=== PATIENT | female | born 1945 | race Caucasian/White ===

== ENCOUNTER 2016-03-31 20:57 | Inpatient (IN) | payer OTHER ==
[2016-03-31 21:22] LABS: BE -0.2 mmoll (-3.0-3.0); BLOOD TYPE ARTERIAL; DRAW SITE R BRACHIAL; METHB 1.1 % (0.0-1.5); O2(CT) 18.3 mL/dL (15.0-23.0); PO2(98.6) 61 mmHg (60-100); SAMPLE BLOOD; SAO2 92.4 % (95.0-100.0); THB 14.7 g/dL (11.5-17.4); pH(98.6) 7.32 (7.35-7.45)
--- NOTE | 2016-03-31 21:25 | PROVIDER DOCUMENTATION ---
HPI-Respiratory General - General Chief Complaint: Shortness of Breath Stated Complaint: short of breath Time Seen by Provider: 03/31/16 20:57 Source: patient Allergies/Adverse Reactions: Patient Allergies Allergy/AdvReac Type Severity Reaction Status Date / Time adhesive Allergy Severe Unknown Verified 03/31/16 21:15 methylprednisolone sodium Allergy Severe SHORTNESS Verified 03/31/16 21:15 succ... * OF BREATH [From Solu-Medrol] Home Medications: Home Medication List Medication Instructions Recorded Confirmed Last Taken Type Alprazolam [Xanax] 0.5 mg PO 4XDAY 06/21/15 03/31/16 11/25/15 22:00 History Aripiprazole [Abilify] 5 mg PO QHS 06/21/15 03/31/16 11/25/15 22:00 History Carbidopa/Levodopa 25 - 100 tab PO TID 06/21/15 03/31/16 11/25/15 22:00 History [Carbidopa-Levodopa 25-100 Tab] Duloxetine [Cymbalta] 60 mg PO DAILY 06/21/15 03/31/16 11/25/15 06:30 History Estradiol 2 mg PO DAILY 06/21/15 03/31/16 11/25/15 06:30 History Levothyroxine [Synthroid] 75 mcg PO DAILY 06/21/15 03/31/16 11/25/15 06:30 History Primidone 50 mg PO BID 06/21/15 03/31/16 11/23/15 06:30 History Propranolol HCl [Propranolol HCl 120 mg PO DAILY 06/21/15 03/31/16 11/25/15 06: 30 History ER] ROSUVAstatin [Crestor] 10 mg PO DAILY 06/21/15 03/31/16 11/25/15 22:00 History Zolpidem [Ambien] 10 mg PO QHS 06/21/15 03/31/16 11/25/15 22:00 History Esomeprazole [Nexium] 40 mg PO DAILY 10/31/15 03/31/16 Unknown History Hydrocodone/Acetaminophen [Bartow 1 each PO Q4H PRN PRN 11/25/15 03/31/16 09:00 History 10-325 Tablet] LISINOpril [Prinivil] 20 mg PO DAILY 11/25/15 03/31/16 11/25/15 06:30 History Meloxicam 15 mg PO DAILY 11/25/15 03/31/16 11/23/15 06:00 History Mirtazapine [Remeron] 15 mg PO HS 11/25/15 03/31/16 11/25/15 22:00 History Trazodone [Desyrel] 200 mg PO QHS 11/25/15 03/31/16 11/25/15 22:00 History Furosemide [Lasix] 40 mg PO PRN PRN #30 tablet 02/28/16 03/31/16 03/30/16 Rx - History of Present Illness-Resp Nature of Presenting Problem: 70 year old F presents to the ED with a cc of shortness of breath with an onset of 2-3 hours ago. Pt was seen last week for the same and was placed on Lasix. Pt states that she did not take her Lasix today. On EMS arrival, pts O2 sat was 65%. Pt was placed on c-pap en-route to ED and given 40 mg of Lasix 15 minutes [employer]. Severity in ED: reports: moderate Onset/Duration: reports: 1-3 hours ago Timing: reports: still present Current Respiratory Medication Therapy: Initiated see nurses note Associated Symptoms: reports: shortness of breath Similar Symptoms Previously?: Yes Recently seen or treated by another doctor?: Yes Review of Systems - Adult - REVIEW OF SYSTEMS - ADULT Constitutional: denies: chills, fever Eyes: reports: no symptoms reported Ears, Nose, Mouth & Throat: reports: no symptoms reported Cardiovascular: denies: chest pain, palpitations Respiratory: reports: shortness of breath, wheezing Gastrointestinal: reports: no symptoms reported Genitourinary: reports: no symptoms reported Musculoskeletal: reports: no symptoms reported Integumentary: reports: no symptoms reported Neurological: reports: no symptoms reported Psychiatric: reports: no symptoms reported Endocrine: reports: no symptoms reported Hematologic/Lymphatic: reports: no symptoms reported Allergic/Immunologic: reports: no symptoms reported All Other Systems: Reviewed and Negative Past History - Adult - PAST MEDICAL HISTORY-ADULT Review of Records: reports: Nursing Assessment Review, Medications Reviewed Major Childhood Illnesses: reports: denies history Cardiovascular: reports: HTN Respiratory: reports: COPD Genitourinary: reports: kidney stones Psychiatric: reports: bipolar Endocrine/Immune: reports: thyroid disorder - PRIOR SURGERIES/PROCEDURES Surgical/Procedure History: reports: hysterectomy, other (thyroidectomy) - PRIOR HOSPITALIZATIONS Prior Hospitalizations: reports: none - IMMUNIZATION STATUS Childhood Immunizations: See Nurse Assessment Flu Vaccine: See Nurse Assessment - FAMILY HISTORY Family History: reviewed, not pertinent - SOCIAL HISTORY Smoking: cigarettes Provider spent 3-5 mins advising pt. on dangers of tobacco.: Discussed manners to quit use, and f/u contacts for add'l counseling. Substance Use: none/never Alcohol Use Frequency: never Physical Exam-General - PHYSICAL EXAM-ADULT Initial Vital Signs Reviewed: Yes - CONSTITUTIONAL General Appearance: alert, moderate distress, obese - RESPIRATORY Respiratory: respiratory distress, decreased breath sounds, crackles, wheezing - CARDIOVASCULAR Cardiovascular: normal peripheral pulses, tachycardia - MUSCULOSKELETAL Extremity: normal inspection, no pedal edema - SKIN Integumentary: normal color, normal turgor, warm/dry - PSYCHIATRIC Psych/Mental Status: normal mood/affect, normal thought content, normal thought process, oriented x 3 Progress - PLAN OF CARE/RESULTS Progress/Plan/Lab Results: plan of care: labs, EKG, bipap Pt placed on bi-pap on arrival due to respiratory distress. Orders Category Date Time Status Cardiac Monitoring DIRECTED Care 03/31/16 21:02 Active Oxygen Therapy- ED Nursing DIRECTED Care 03/31/16 21:02 Active Saline Loc NOW Care 03/31/16 21:02 Active CHEST-PORTABLE [RAD] Stat Exams 03/31/16 21:02 Taken ABG [RESP] Routine Lab 03/31/16 21:05 Completed CBC WITH ELECTRONIC DIFF [HEME] Stat Lab 03/31/16 21:25 Completed CK PROFILE [SP CHEM] Stat Lab 03/31/16 21:25 Completed COMPREHENSIVE METABOLIC PANEL [CHEM] Stat Lab 03/31/16 21:25 Completed MAGNESIUM [CHEM] Stat Lab 03/31/16 21:25 Completed PRO B-NATRIURETIC PEPTIDE Stat Lab 03/31/16 21:[address]IME WITH INR [address] [COAG] Stat Lab 03/31/16 21:[address] [COAG] Stat Lab 03/31/16 21:25 Completed TROPONIN T Stat Lab 03/31/16 21:25 Completed EKG [EKG] Stat Ther 03/31/16 21:02 Draft Transfer/Admit Order [TRANSFER] Routine Transfer 03/31/16 22:59 Ordered Laboratory Tests 03/31/16 03/31/16 03/31/16 21:05 21:25 21:25 WBC RBC Hgb Hct MCV MCH MCHC RDW Std Deviation Plt Count MPV Immature Gran % (Auto) Neut % (Auto) Lymph % (Auto) Kimball % (Auto) Eos % (Auto) Baso % (Auto) Immature Gran # (Auto) Neut # (Auto) Lymph # (Auto) Kimball # (Auto) Eos # (Auto) Baso # (Auto) PT INR APTT (Factor Assay) Specimen Type ARTERIAL Sample Site R BRACHIAL pH 7.32 L pCO2 52 H* pO2 61 HCO3 24.5 Base Excess -0.2 Oxyhemoglobin 88.6 L* ABG O2 Sat (Calculated) 18.3 ABG O2 Saturation 92.4 L ABG Carboxyhemoglobin 3.00 H ABG Methemoglobin 1.1 Familia Test NO A-a O2 Difference 231.0 Total Hemoglobin 14.7 Lactate 2.10 Blood Gas Modality BI PAP Spontaneous Rate 12 FiO2 % 50.0 Inspiratory BiPAP 16.0 Expiratory BiPAP 8.0 Sodium 136 Potassium 4.0 Chloride 97 L Carbon Dioxide 24 L Anion Gap 15 BUN 12 Creatinine 0.8 Estimated GFR/1.73 m2 > 60 BUN/Creatinine Ratio 15 Glucose 219 H Calculated Osmolality 278 Calcium 9.3 Magnesium 2.1 Total Bilirubin 0.20 AST 11 ALT 6 L Alkaline Phosphatase 127 H Creatine Kinase 59 Troponin T < 0.010 Alh-G-Skspqadpuss Pept Total Protein 7.1 Albumin 4.1 Globulin 3.0 Albumin/Globulin Ratio 1.0 03/31/16 03/31/16 03/31/16 21:25 21:25 21:25 WBC 19.56 H RBC 5.02 Hgb 14.6 Hct 46.2 MCV 92.0 MCH 29.1 MCHC 31.6 L RDW Std Deviation 14.3 Plt Count 308 MPV 9.0 Immature Gran % (Auto) 0.6 H Neut % (Auto) 86.9 H Lymph % (Auto) 7.9 L Kimball % (Auto) 3.4 Eos % (Auto) 0.9 Baso % (Auto) 0.3 Immature Gran # (Auto) 0.11 H Neut # (Auto) 17.03 H Lymph # (Auto) 1.54 Kimball # (Auto) 0.66 H Eos # (Auto) 0.17 Baso # (Auto) 0.05 PT 12.9 INR 0.94 APTT (Factor Assay) 29.3 Specimen Type Sample Site pH pCO2 pO2 HCO3 Base Excess Oxyhemoglobin ABG O2 Sat (Calculated) ABG O2 Saturation ABG Carboxyhemoglobin ABG Methemoglobin Familia Test A-a O2 Difference Total Hemoglobin Lactate Blood Gas Modality Spontaneous Rate FiO2 % Inspiratory BiPAP Expiratory BiPAP Sodium Potassium Chloride Carbon Dioxide Anion Gap BUN Creatinine Estimated GFR/1.73 m2 BUN/Creatinine Ratio Glucose Calculated Osmolality Calcium Magnesium Total Bilirubin AST ALT Alkaline Phosphatase Creatine Kinase Troponin T Vtl-[id number]-Fuagqzdtgxi Pept 990 H Total Protein Albumin Globulin Albumin/Globulin Ratio Vital Signs - 24 hr 03/31/16 03/31/16 03/31/16 20:59 21:11 21:41 Temperature 98.2 F Pulse Rate 102 H 88 86 Respiratory 24 21 26 H Rate Blood Pressure 230/136 165/107 162/90 O2 Sat by Pulse 82 L 90 L 93 L Oximetry 03/31/16 03/31/16 22:10 22:24 Temperature Pulse Rate 82 79 Respiratory 23 23 Rate Blood Pressure 149/95 158/96 O2 Sat by Pulse 92 L 91 L Oximetry Pt/family given results. Pt will be admitted to Dr. Mc. PT/Family in agreement with plan of care. - EKG 1 Time of EKG reading by physician:: 21:26 EKG Read and Signed by:: Gregorio Woo EKG Interpretation (*Must complete 3 of following elements*): Abnormal Rate: 87 Rhythm: NSR QRS: LVH - CONSULTS/PCP/HOSPITALIST Notification #1 *Consult/PCP/Hospitalist*: Dr. Mc(PCP) Time Discussed: 22:55 Consult Disposition: Admit Departure - Departure Time of Disposition Order: 22:59 DIAGNOSIS: COPD with acute exacerbation Disposition: ADMITTED INPATIENT 09 Certified Medical Emergency: Emergent Condition: Stable Referrals: Gilbert Mc MD [Primary Care Provider] - - Critical Care Note Total Time (mins): 60 Critical Care Statement: This patient required my direct personal management to treat or rule out processes, the absence of which, could potentiallly result in sudden, clinically significant life or limb threatening deterioration. Attestation - Scribe Verification/Attestation Scribe:: Priscilla Chandler Acting as Scribe for:: Gregorio Woo Scribe documention review:: This chart was documented by a scribe and accurately reflects the service the provider performed and the decisions made by the provider. Physician Attestation - Physician Attestation I, the provider, attest to the following statement:: Gregorio Woo Physician documentation Attestation:: This documentation recorded by the scribe accurately reflects the service I personally performed and the decisions made by me.
[2016-03-31 21:28] LABS: MANUAL DIFF NEEDED? NO
--- NOTE | 2016-03-31 21:34 | EKG Report ---
Test Performed on : 03/31/2016 9:26:45 PM Test Reason : CHEST PAIN Blood Pressure : / mmHG Vent. Rate : 087 BPM Atrial Rate : 087 BPM P-R Int : 154 ms QRS Dur : 074 ms QT Int : 384 ms P-R-T Axes : 047 002 073 degrees QTc Int : 462 ms Normal sinus rhythm. Minimal voltage criteria for LVH, may be normal variant Borderline ECG When compared with ECG of 26-FEB-2016 21:07, No significant change was found Unconfirmed Result
[2016-03-31 21:36] LABS: BASO% 0.3 % (0.0-0.8); EOS# 0.17 X1000 (0.0-0.7); EOS% 0.9 % (0.0-10.0); HEMATOCRIT 46.2 % (37.0-47.0); HEMOGLOBIN 14.6 g/dL (12.0-16.0); IMM GRAN# 0.11 X1000 (0.0-0.04); IMM GRAN% 0.6 % (0.0-0.5); LYMPH# 1.54 X1000 (1.2-3.4); LYMPH% 7.9 % (20.5-51.1); MCH 29.1 PG (27-31); MCHC 31.6 g/dL (33-37); MONO# 0.66 X1000 (0.11-0.59); MONO% 3.4 % (1.7-9.3); NEUT% 86.9 % (42.2-75.2); PLT 308 X1000 (130-400); RBC 5.02 XMIL (4.2-5.4)
[2016-03-31 21:36] LABS: PCO2(98.6) 52 mmHg (35-45)
[2016-03-31 21:37] LABS: ALLEN TEST NO; MODALITY BI PAP; SRATE 12 BPM
[2016-03-31 21:50] LABS: INR 0.94 (0.86-1.15); PROTIME 12.9 Seconds (12.1-15.5)
[2016-03-31 21:51] LABS: PTT PL 29.3 Seconds (22.6-43.9)
[2016-03-31 22:01] LABS: AGAP 15; ALBUMIN 4.1 g/dL (3.5-5.0); ALKALINE PHOSPHATASE 127 U/L (32-104); BUN 12 mg/dL (8-22); CALCIUM 9.3 mg/dL (8.8-10.2); CHLORIDE 97 mmol/L (98-107); CK PROFILE 59 U/L (24-173); COSMO 278; GOT 11 U/L (10-30); GPT 6 U/L (10-36); MAGNESIUM 2.1 mg/dL (1.5-2.7); SODIUM 136 mmol/L (136-145); TCO2 24 mmol/L (25-35); TOTAL PROTEIN 7.1 g/dL (6.3-8.3)
[2016-03-31] MEDS ORDERED: ZOFRAN IV PRN (23:00)
[2016-04-01] MEDS: NS 1,000 ML IV SCH ×3 (00:29→11:58)
[2016-04-01] MEDS: NORCO-10 PO PRN ×4 (00:43→21:55)
[2016-04-01 05:56] LABS: BE 5.5 mmoll (-3.0-3.0); BLOOD TYPE ARTERIAL; DRAW SITE R RADIAL; METHB 0.8 % (0.0-1.5); O2(CT) 15.7 mL/dL (15.0-23.0); PO2(98.6) 70 mmHg (60-100); SAMPLE BLOOD; SAO2 96.2 % (95.0-100.0); pH(98.6) 7.38 (7.35-7.45)
[2016-04-01 06:12] LABS: ALLEN TEST YES; MODALITY CANNULA; PCO2(98.6) 54 mmHg (35-45)
[2016-04-01] MEDS ORDERED: BLISTEX MEDICATED BERRY LIP BALM TOP PRN (06:32)
--- NOTE | 2016-04-01 07:51 | Diag Imaging Result Document ---
PROCEDURE NAME: CHEST-PORTABLE - 03/31/2016 CHEST, SINGLE VIEW: COMPARISON: 02/28/2016 FINDINGS: Interval development of dense infiltrates in the mid and lower left lung. The heart is not enlarged. No pleural effusions identified. There may be a small infiltrate in the right base as well. IMPRESSION: Development of dense infiltrates in the left lung. Followup PA and lateral recommended.
[2016-04-01] MEDS: PRINIVIL PO SCH (09:21)
[2016-04-01] MEDS: SINEMET 25/100 PO SCH ×3 (09:21→17:59)
[2016-04-01] MEDS: XANAX PO SCH ×4 (09:21→21:38)
[2016-04-01] MEDS: ESTRACE PO SCH (09:21)
[2016-04-01] MEDS: MYSOLINE PO SCH ×2 (09:22→21:39)
[2016-04-01] MEDS: INDERAL LA PO SCH (09:22)
[2016-04-01] MEDS: CYMBALTA PO SCH (09:22)
[2016-04-01] MEDS: SYNTHROID PO SCH (09:28)
[2016-04-01] MEDS: NEXIUM PO SCH (09:28)
--- NOTE | 2016-04-01 13:51 | Diag Imaging Result Document ---
PROCEDURE NAME: CHEST-2 VIEWS - 04/01/2016 FRONTAL AND LATERAL CHEST, TWO VIEWS: COMPARISON: 03/31/2016. FINDINGS: The lungs are well expanded. The heart is not enlarged. The vessels are not distended. No pleural effusions. Interval clearing of the prior infiltrate. No free air beneath the diaphragm. IMPRESSION: Marked interval improvement with clearing of the prior infiltrate.
[2016-04-01 20:49] LABS: MANUAL DIFF NEEDED? NO
[2016-04-01 20:58] LABS: BASO% 0.4 % (0.0-0.8); EOS# 0.21 X1000 (0.0-0.7); EOS% 1.5 % (0.0-10.0); HEMOGLOBIN 11.7 g/dL (12.0-16.0); IMM GRAN# 0.05 X1000 (0.0-0.04); IMM GRAN% 0.4 % (0.0-0.5); LYMPH# 3.76 X1000 (1.2-3.4); LYMPH% 26.7 % (20.5-51.1); MCH 29.4 PG (27-31); MCHC 31.6 g/dL (33-37); MONO# 1.07 X1000 (0.11-0.59); MONO% 7.6 % (1.7-9.3); NEUT% 63.4 % (42.2-75.2); PLT 313 X1000 (130-400); RBC 3.98 XMIL (4.2-5.4)
[2016-04-01] MEDS ORDERED: INDERAL LA PO SCH (21:00)
[2016-04-01] MEDS ORDERED: REMERON PO SCH (21:00)
[2016-04-01] MEDS ORDERED: ABILIFY PO SCH (21:00)
[2016-04-01] MEDS ORDERED: CRESTOR PO SCH (21:00)
[2016-04-01] MEDS ORDERED: AMBIEN PO SCH (21:00)
[2016-04-01 21:11] LABS: URINE SOURCE CATH
[2016-04-01 21:23] LABS: BILIRUBIN URINE NEGATIVE (NEGATIVE); BLOOD URINE 1+ (NEGATIVE); CLARITY CLEAR (CLEAR); COLOR YELLOW; GLUCOSE URINE NEGATIVE (NEGATIVE); LEUKOCYTES URINE 1+ (NEGATIVE); NITRITE URINE NEGATIVE (NEGATIVE); PH URINE 6.5; PROTEIN URINE TRACE mg/dL (NEGATIVE); SP GRAVITY URINE 1.015; UROBILINOGEN URINE NORMAL
[2016-04-01 21:24] LABS: URINE CULTURE PL NEEDED? YES; URINE EPITHELIAL CELLS <10 /HPF (<10)
[2016-04-02] MEDS: NORCO-10 PO PRN ×2 (04:25→13:09)
[2016-04-02] MEDS: SYNTHROID PO SCH (06:19)
[2016-04-02] MEDS: NEXIUM PO SCH (06:19)
[2016-04-02] MEDS: NS 1,000 ML IV SCH ×2 (06:29→14:16)
[2016-04-02] MEDS: CYMBALTA PO SCH (09:46)
[2016-04-02] MEDS: PRINIVIL PO SCH (09:46)
[2016-04-02] MEDS: INDERAL LA PO SCH (09:46)
[2016-04-02] MEDS: SINEMET 25/100 PO SCH ×3 (09:46→16:32)
[2016-04-02] MEDS: ESTRACE PO SCH (09:47)
[2016-04-02] MEDS: XANAX PO SCH ×3 (09:47→16:32)
[2016-04-02] MEDS: MYSOLINE PO SCH (09:47)
[2016-04-02] MEDS ORDERED: DIFLUCAN PO SCH (14:15)
[2016-04-02 16:20] VITALS: BP 150/53
--- NOTE | 2016-04-02 17:40 | Diag Imaging Result Document ---
PROCEDURE NAME: SHOULDER-LEFT - 04/02/2016 LEFT SHOULDER, 3 VIEWS: FINDINGS: The patient apparently was unable to externally rotate the humerus for optimal external rotation view. There is no fracture or dislocation identified. There is no other discrete abnormality identified. IMPRESSION: No evidence of fracture or dislocation.
[2016-04-03] MEDS ORDERED: LASIX IV SCH (09:00)
--- NOTE | 2016-05-05 03:51 | HISTORY AND PHYSICAL ---
HISTORY OF PRESENT ILLNESS: This patient presented to the emergency room complaining of shortness of breath that had begun approximately 2-3 hours prior to her presentation. Had been seen the previous week for the same particular issue and had been placed on Lasix. Patient states that she did not take her Lasix today. On the EMS's arrival, the patient's O2 saturation was reportedly 65%. The patient was placed on CPAP en route to the ED and given 40 of Lasix 15 minutes prior to arrival. This issue had been going on for between 1-3 hours. Moderate in severity, was present when she arrived. She had similar problems previously and she had been seen earlier and had been given Lasix for this same problem. CURRENT ALLERGIES: Solu-Medrol and adhesive tape. MEDICATIONS: She has been taking alprazolam, Abilify, Sinemet, Cymbalta, estradiol, levothyroxine, primidone, propranolol, Crestor, Ambien, Nexium, hydrocodone, lisinopril, meloxicam, Remeron, trazodone, and furosemide 40. PAST MEDICAL HISTORY: She has an extensive psychiatric history bipolar personality disorder. Hypertensive, dyslipidemia, and is generally obese. She reports a history of COPD, possible CHF, hypertension, kidney stones, bipolar personality disorder, and thyroid disorder. She has had a previous hysterectomy, thyroidectomy, and had some bladder surgeries in the past. SOCIAL HISTORY: She still smokes cigarettes. She claims she never uses alcohol and/or illegal substances. REVIEW OF SYSTEMS: Constitutional: She denies any recent fever or chills. HEENT: Eyes: She has had no visual field cuts, irritated, redness. Ears, nose, and throat: No pharyngitis, otitis, or sinusitis. Cardiovascular: She denies chest pain, palpitations. No claudication. Respiratory: She has had some shortness of breath and wheezing. She is a smoker. Gastrointestinal: No nausea, vomiting, diarrhea, constipation, melena, hematochezia, abdominal pain, reflux disease. Genitourinary: No dysuria, hematuria, polyuria, pyuria, incontinence, OAB. Musculoskeletal: She has chronic joint pain. Skin: No rashes, lumps, or bumps. Neuromuscular: No seizure, TIA, syncopal episodes. Psychiatric: She has bipolar personality disorder. Sees a psychiatrist. Keeps switching psychiatrists, is on a laundry list of psychiatric medicines. Endocrine: No polyuria or polydipsia. No heat or cold intolerance. Hematological: No bleeding or clotting disorder. No history of anemia. No history of spleen disorders. Allergies: No asthma, hayfever, or eczema, although she may actually have asthma. PHYSICAL EXAMINATION: VITAL SIGNS: At the time of her presentation to the emergency room, she had a pulse rate of 102, temperature was 98.2, respiratory rate was 24, blood pressure was reportedly 230/136, and her O2 saturation was 82. HEENT: Head was normocephalic. Eyes were PERRL. EOMs intact. Sclerae clear. Fundi benign. Nares patent. Oropharynx negative. RESPIRATORY: She was somewhat in respiratory distress. She had diminished breath sounds bilaterally. Some wheezing and crackles were apparent. CARDIOVASCULAR: She has tachycardia. Peripheral pulses were intact. She had peripheral edema and presacral edema as well. SKIN: Clear. No lesions. PSYCHIATRIC: She was A and O x3. ADMITTING DIAGNOSIS: Respiratory distress. LABORATORY DATA: Her blood gases when she arrived, pH was 7.32, pCO2 52, PO2 was 61, her carboxyhemoglobin was 3. Her electrolytes were all within normal range. CO2 was 24, BUN was 12, creatinine 0.8, GFR greater than 60, random blood sugar 219, and calcium 9.3. Magnesium 2.3. Liver functions were normal. Alkaline phosphatase slightly elevated at 127. CK 59, troponin less than 0.01. Total protein and albumin were normal. White count was 19,560, hematocrit was 46.2, platelet count 308,000, her neutrophils were 87%. Her EKG showed left ventricular hypertrophy, normal sinus rhythm at 87. She was admitted with COPD exacerbation.
--- NOTE | 2016-05-05 09:01 | DISCHARGE SUMMARY ---
ADMISSION DATE: 03/31/2016 DISCHARGE DATE: 04/02/2016 She was admitted on 03/31/2016 after she presented to the emergency room with shortness of breath with a markedly elevated blood pressure of 230/136, and O2 saturation of 82. She was admitted from the emergency room as a chronic obstructive pulmonary disease exacerbation. Her database is as follows: Her EKG revealed a normal sinus rhythm, nonspecific ST-segment changes in aVL; otherwise, normal. She had and initial chest x-ray that showed interval development of a dense infiltrate in the mid and lower left lung. Heart was not enlarged. No pleural effusion identified. There also may have been a small infiltrate in the right base as well. Followup chest x-rays to confirm and evaluate the status of this lesion. After several doses of Lasix the following day, her chest x-rays that showed that the lungs are well expanded. Heart is not enlarged. The vessels are not distended. No pleural effusions. There was interval clearing of the prior infiltrates. No free air beneath the diaphragm suggesting that this was not atelectasis or maybe pulmonary edema. She had a left shoulder film from a fall that was negative. The following day, her white count had dropped from 19,560 to 14,100. Hematocrit went from 46 down to 37. Platelet counts were essentially the same. The differential was likewise different. There was less of a left shift the following day. Her INR was 0.94. Blood gases on admission showed a pH of 7.32, pCO2 55, a pO2 of 61, her oxyhemoglobin was 88.6, carboxyhemoglobin was 3. She was on BiPAP 12 rate, FiO2 50, 16 and 8 pressures. Following day off BiPAP. On cannula her pH was 7.38, pCO2 was 54, pO2 was 70, O2 saturation was 93%. Carboxyhemoglobin dropped to 2.4. This was on 40% FiO2. Her comp showed normal preserved renal function with a GFR greater than 60. BUN and creatinine ratio of 15 with a CO2 of 24. Her LFTs were all within normal limits, as were her albumin and proteins. Her proBNP was 9990. Urinalysis had a 10-20 WBCs, 10-20 RBCs, 1+ white cells, 1+ blood, 1+ ketones. Her microbiology revealed that she had no growth in the urine. So with the reinstitution of her Lasix therapy, her shortness of breath resolved and she abruptly improved. She was discharged and advised to continue her Lasix therapy and we will follow her up in the next couple days with an echo evaluation.
== END 2016-04-02 18:50 | disposition home or self-care (01) | DRG 192 ==
LOC: P.ED 20:57 → P.MEDSURG 23:00
PROVIDERS: ADMIT Internal Medicine; ATTEND Internal Medicine
DX: J44.1 Chronic obstructive pulmonary disease with (acute) exacerbation (principal); I11.0 Hypertensive heart disease with heart failure; I50.9 Heart failure, unspecified; I10 Essential (primary) hypertension; E78.5 Hyperlipidemia, unspecified; E07.9 Disorder of thyroid, unspecified; E66.9 Obesity, unspecified; F17.210 Nicotine dependence, cigarettes, uncomplicated; Z79.810 Long term (current) use of selective estrogen receptor modulators (SERMs)
CPT/HCPCS: 51702; 71010; 71020; 80053; 81001; 82550; 82805; 83735; 83880; 84484; 85025; 85610; 85730; 87088; 93005; 94660; 94761; 99285; J7030

== ENCOUNTER 2016-04-28 09:31 | Emergency (ER) | payer OTHER ==
[2016-04-28] MEDS ORDERED: ASPIRIN PO STA (09:36)
[2016-04-28 09:51] LABS: MANUAL DIFF NEEDED? NO
[2016-04-28 09:53] LABS: BASO% 0.4 % (0.0-0.8); EOS# 0.13 X1000 (0.0-0.7); HEMATOCRIT 40.7 % (37.0-47.0); HEMOGLOBIN 13.1 g/dL (12.0-16.0); IMM GRAN# 0.03 X1000 (0.0-0.04); IMM GRAN% 0.2 % (0.0-0.5); LYMPH# 2.65 X1000 (1.2-3.4); LYMPH% 19.4 % (20.5-51.1); MCH 29.2 PG (27-31); MCHC 32.2 g/dL (33-37); MCV 90.6 FL (81-99); MONO# 0.82 X1000 (0.11-0.59); MPV 9.2 FL (7.4-10.4); PLT 410 X1000 (130-400); RBC 4.49 XMIL (4.2-5.4)
[2016-04-28 10:07] LABS: INR 0.95 (0.86-1.15)
[2016-04-28 10:08] LABS: PTT PL 23.3 Seconds (22.6-43.9)
[2016-04-28 10:16] LABS: AGAP 11; ALBUMIN 3.8 g/dL (3.5-5.0); ALKALINE PHOSPHATASE 116 U/L (32-104); BUN 13 mg/dL (8-22); CALCIUM 9.5 mg/dL (8.8-10.2); CHLORIDE 95 mmol/L (98-107); CK PROFILE 39 U/L (24-173); COSMO 280; GOT 7 U/L (10-30); GPT < 5 U/L (10-36); MAGNESIUM 2.2 mg/dL (1.5-2.7); POTASSIUM 3.6 mmol/L (3.5-5.1); SODIUM 138 mmol/L (136-145); TCO2 32 mmol/L (25-35); TOTAL PROTEIN 7.5 g/dL (6.3-8.3)
--- NOTE | 2016-04-28 10:16 | PROVIDER DOCUMENTATION ---
HPI-Chest Pain <Danitza Castaneda - Last Filed: 04/28/16 11:47> - General Source: patient - History of Present Illness-CP Location: reports: substernal, shoulder Chest Pain Radiation: reports: shoulders Quality of Pain: reports: tightness Severity in ED: mild Onset/Duration: 6 days ago Timing: still present, improving Context/Activities at Onset: reports: none Modifying Factors: improves with: nothing Associated Symptoms: reports: weakness Nitro Today/Relief: no nitro taken today Aspirin Treatment Today: no aspirin today Prior Chest Pain/Cardiac Workup: reports: angina Similar Symptoms Previously?: No Recently Seen Here or By Another Healthcare Provider: No <Edgar Velazquez - Last Filed: 04/28/16 22:56> - General Chief Complaint: Weakness Stated Complaint: CHEST PAIN Time Seen by Provider: 04/28/16 10:14 Allergies/Adverse Reactions: Patient Allergies Allergy/AdvReac Type Severity Reaction Status Date / Time adhesive Allergy Severe Unknown Verified 03/31/16 21:15 methylprednisolone sodium Allergy Severe SHORTNESS Verified 03/31/16 21:15 succ... * OF BREATH [[email or web address]] Home Medications: Home Medication List Medication Instructions Recorded Confirmed Last Taken Type Alprazolam [Xanax] 0.5 mg PO 4XDAY 06/21/15 03/31/16 11/25/15 22:00 History Aripiprazole [Abilify] 5 mg PO QHS 06/21/15 03/31/16 11/25/15 22:00 History Carbidopa/Levodopa 1 tab PO TID 06/21/15 04/01/16 11/25/15 22:00 History [Carbidopa-Levodopa 25-100 Tab] Duloxetine [Cymbalta] 60 mg PO DAILY 06/21/15 03/31/16 11/25/15 06:30 History Estradiol 2 mg PO DAILY 06/21/15 03/31/16 11/25/15 06:30 History Levothyroxine [Synthroid] 75 mcg PO DAILY 06/21/15 03/31/16 11/25/15 06:30 History Primidone 50 mg PO BID 06/21/15 03/31/16 11/23/15 06:30 History Propranolol HCl [Propranolol HCl 120 mg PO DAILY 06/21/15 03/31/16 11/25/15 06: 30 History ER] ROSUVAstatin [Crestor] 10 mg PO DAILY 06/21/15 03/31/16 11/25/15 22:00 History Zolpidem [Ambien] 10 mg PO QHS 06/21/15 03/31/16 11/25/15 22:00 History Esomeprazole [Nexium] 40 mg PO DAILY 10/31/15 03/31/16 Unknown History Hydrocodone/Acetaminophen [[place] 1 each PO Q4H PRN PRN 11/25/15 03/31/16 09:00 History 10-325 Tablet] LISINOpril [Prinivil] 20 mg PO DAILY 11/25/15 03/31/16 11/25/15 06:30 History Meloxicam 15 mg PO DAILY 11/25/15 03/31/16 11/23/15 06:00 History Mirtazapine [Remeron] 15 mg PO HS 11/25/15 03/31/16 11/25/15 22:00 History Trazodone [Desyrel] 200 mg PO QHS 11/25/15 03/31/16 11/25/15 22:00 History Furosemide [Lasix] 40 mg PO PRN PRN #30 tablet 02/28/16 03/31/16 03/30/16 Rx Propranolol HCl 60 mg PO QHS 04/01/16 04/01/16 Unknown History Ketorolac [Toradol] 10 mg PO Q6H PRN PRN #6 tablet 04/28/16 Unknown Rx Nitrofurantoin Hunt/Macrocryst 100 mg PO BID #10 capsule 04/28/16 Unknown Rx [Macrobid] - History of Present Illness-CP Nature of Presenting Problem: 70 yof c/o chest pain, left arm pain, and generalized weakness x 2 weeks. Patient has BLE shaking when she stands up and feels very nervous. The shaking causing her to be unable to walk. Pt did have some nausea last night, but no vomiting. Patients biggest complaint is how to get rid of her "nerves". (Edgar Velazquez) Review of Systems - Adult - REVIEW OF SYSTEMS - ADULT Constitutional: reports: see HPI Eyes: reports: no symptoms reported. denies: see HPI, discharge, dry eyes, decreased vision, blurred vision, double vision, eye pain, redness, other Ears, Nose, Mouth & Throat: reports: no symptoms reported. denies: see HPI, ear discharge, ear pain, hearing loss, tinnitus, epistaxis, sinus problem, nose pain, loose teeth, mouth/dental pain, mouth swelling, hoarseness, throat pain, throat swelling, other Cardiovascular: reports: chest pain Respiratory: reports: no symptoms reported. denies: see HPI, chronic cough, cough, dyspnea on exertion, excessive sputum production, hemoptysis, pleurisy, shortness of breath, wheezing, other Gastrointestinal: reports: no symptoms reported. denies: see HPI, abdominal pain, hematemesis, constipation, diarrhea, difficulty swallowing, frequent heartburn, nausea, poor appetite, rectal bleeding, vomiting, other Genitourinary: reports: no symptoms reported Musculoskeletal: reports: muscle weakness Neurological: reports: no symptoms reported. denies: see HPI, ataxia, dizziness /vertigo, headache/migraines, loss of balance, numbness, paresthesia, seizure, slurred speech, syncope, tremors, other Psychiatric: reports: anxiety. denies: no symptoms reported, see HPI, anti- depressant use, alcohol/drug dependence, depression, emotional problems, insomnia, panic attacks, suicidal thoughts, other All Other Systems: Reviewed and Negative <Edgar Velazquez - Last Filed: 04/28/16 22:56> Past History - Adult - PAST MEDICAL HISTORY-ADULT Review of Records: reports: Old Records Reviewed, Nursing Assessment Review, Medications Reviewed, Social history reviewed & non-contributory. Major Childhood Illnesses: reports: denies history Cardiovascular: reports: HTN Respiratory: reports: COPD Genitourinary: reports: kidney stones Psychiatric: reports: bipolar Endocrine/Immune: reports: thyroid disorder - PRIOR SURGERIES/PROCEDURES Surgical/Procedure History: reports: hysterectomy, other (thyroidectomy) - PRIOR HOSPITALIZATIONS Prior Hospitalizations: reports: none - IMMUNIZATION STATUS Childhood Immunizations: See Nurse Assessment Flu Vaccine: See Nurse Assessment - FAMILY HISTORY Family History: reviewed, not pertinent <Edgar Velazquez - Last Filed: 04/28/16 22:56> Physical Exam-General - PHYSICAL EXAM-ADULT Initial Vital Signs Reviewed: Yes - CONSTITUTIONAL General Appearance: appears well, alert, no apparent distress - EYES Eyes: PERRL/EOMI, pink conjunctivae - HEAD, EARS, NOSE, MOUTH & THROAT HENMT: normocephalic/atraumatic, moist mucous membranes, normal ENT inspection, TMs normal, pharynx normal - NECK Neck: non-tender, full range of motion, supple - RESPIRATORY Respiratory: chest non-tender, lungs clear, normal breath sounds, no pleuratic chest pain, no respiratory distress, no accessory muscle use - CARDIOVASCULAR Cardiovascular: normal peripheral pulses, regular rate, rhythm, no edema, no gallop, no JVD, no murmur - CHEST (BREASTS) Chest/Breast: deferred - GASTROINTESTINAL (ABDOMEN) Abdominal Exam: normal bowel sounds, non tender, soft, no organomegaly, no pulsatile mass - GENITOURINARY Female Genitalia/Pelvic Exam: deferred - LYMPHATIC Lymphatic: no adenopathy - MUSCULOSKELETAL Back Exam: normal inspection, no CVA tenderness, no vertebral tenderness. negative: CVA tenderness, decreased range of motion, ecchymosis, kyphosis, lordosis, muscle spasm, scoliosis, swelling, vertebral tenderness, other Extremity: normal gait, normal inspection, no pedal edema, no calf tenderness, normal capillary refill, tenderness (Left shoulder tender on palpation.) - SKIN Integumentary: normal color, normal turgor, warm/dry - PSYCHIATRIC Psych/Mental Status: normal thought content, normal thought process, oriented x 3, anxious <Edgar Velazquez - Last Filed: 04/28/16 22:56> Progress - EKG 1 Time of EKG reading by physician:: 09:36 EKG Read and Signed by:: Steve Navas EKG Interpretation (*Must complete 3 of following elements*): Normal Rate: 73 Rhythm: sinus [place]: normal QRS: normal ME Interval: normal <Danitza Castaneda - Last Filed: 04/28/16 11:47> - XRAY 1 XRAY Study: Chest Impression: Normal (Chest x-ray normal. Read by radiologist.) <Edgar Velazquez - Last Filed: 04/28/16 22:56> - PLAN OF CARE/RESULTS Progress/Plan/Lab Results: Orders Category Date Time Status Cardiac Monitoring DIRECTED Care 04/28/16 09:37 Active Oxygen Therapy- ED Nursing DIRECTED Care 04/28/16 09:37 Active Saline Loc NOW Care 04/28/16 09:37 Active CHEST-2 VIEWS [RAD] Stat Exams 04/28/16 09:37 Completed CBC WITH ELECTRONIC DIFF [HEME] Stat Lab 04/28/16 09:45 Completed CK PROFILE [SP CHEM] Stat Lab 04/28/16 09:45 Completed COMPREHENSIVE METABOLIC PANEL [CHEM] Stat Lab 04/28/16 09:45 Com[address] D-DIMER [address] [COAG] Stat Lab 04/28/16 09:45 Completed MAGNESIUM [CHEM] Stat Lab 04/28/16 09:45 Completed PRO B-NATRIURETIC PEPTIDE Stat Lab 04/28/16 09:45 Com[address]IME WITH INR PL [COAG] Stat Lab 04/28/16 09:[address] [COAG] Stat Lab 04/28/16 09:45 Completed TROPONIN T Stat Lab 04/28/16 09:[address] W/POSS RFLX CULT [URINALYSIS] Stat Lab 04/28/16 11:14 Completed URINE CULTURE [RM] Routine Lab 04/28/16 11:55 Received Aspirin Med 04/28/16 09:36 Discontinued 325 mg PO STAT STA Ketorolac [Toradol] Med 04/28/16 11:43 Discontinued 30 mg IV NOW ONE EKG [EKG] Stat Ther 04/28/16 09:37 Draft Vital Signs Temp Pulse Resp BP Pulse Ox 04/28/16 12:46 67 23 165/79 93 L 04/28/16 11:30 69 23 152/85 91 L 04/28/16 09:40 98.2 F 76 18 174/80 95 adhesive Allergy (Severe, Verified 03/31/16 21:15) Unknown allergy: tape methylprednisolone sodium succ... * [From Solu-Medrol] Allergy (Severe, Verified 03/31/16 21:15) SHORTNESS OF BREATH redness Alprazolam [Xanax] 0.5 mg PO 4XDAY 06/21/15 Aripiprazole [Abilify] 5 mg PO QHS 06/21/15 Carbidopa/Levodopa [Carbidopa-Levodopa 25-100 Tab] 1 tab PO TID 06/21/15 Duloxetine [Cymbalta] 60 mg PO DAILY 06/21/15 Estradiol 2 mg PO DAILY 06/21/15 Levothyroxine [Synthroid] 75 mcg PO DAILY 06/21/15 Primidone 50 mg PO BID 06/21/15 Propranolol HCl [Propranolol HCl ER] 120 mg PO DAILY 06/21/15 ROSUVAstatin [Crestor] 10 mg PO DAILY 06/21/15 Zolpidem [Ambien] 10 mg PO QHS 06/21/15 Esomeprazole [Nexium] 40 mg PO DAILY 10/31/15 Hydrocodone/Acetaminophen [[place] 10-325 Tablet] 1 each PO Q4H PRN PRN 11/25/15 LISINOpril [Prinivil] 20 mg PO DAILY 11/25/15 Meloxicam 15 mg PO DAILY 11/25/15 Mirtazapine [Remeron] 15 mg PO HS 11/25/15 Trazodone [Desyrel] 200 mg PO QHS 11/25/15 Furosemide [Lasix] 40 mg PO PRN PRN #30 tablet 02/28/16 Propranolol HCl 60 mg PO QHS 04/01/16 Ketorolac [Toradol] 10 mg PO Q6H PRN PRN #6 tablet 04/28/16 Nitrofurantoin Hunt/Macrocryst [Macrobid] 100 mg PO BID #10 capsule 04/28/16 Laboratory 04/28/16 04/28/16 04/28/16 11:14 11:14 09:45 WBC RBC Hgb Hct MCV MCH MCHC RDW Std Deviation Plt Count MPV Immature Gran % (Auto) Neut % (Auto) Lymph % (Auto) Hunt % (Auto) Eos % (Auto) Baso % (Auto) Immature Gran # (Auto) Neut # (Auto) Lymph # (Auto) Hunt # (Auto) Eos # (Auto) Baso # (Auto) PT 13.0 INR 0.95 APTT (Factor Assay) 23.3 D-Dimer 0.25 Sodium Potassium Chloride Carbon Dioxide Anion Gap BUN Creatinine Estimated GFR/1.73 m2 BUN/Creatinine Ratio Glucose Calculated Osmolality Calcium Magnesium Total Bilirubin AST ALT Alkaline Phosphatase Creatine Kinase Troponin T [id number]-[id number] Pept Total Protein Albumin Globulin Albumin/Globulin Ratio Urine Source CATH Cancelled Urine Color YELLOW Cancelled Urine Clarity CLEAR Urine Turbidity Cancelled Urine pH 7.0 Cancelled Ur Specific [place] 1.010 Cancelled Urine Protein 1+(30 mg/dL) A Cancelled Ur Glucose (Stick) Cancelled Urine Ketones TRACE Ur Ketones (Stick) Cancelled Urine Blood NEGATIVE Cancelled Urine Nitrite NEGATIVE Cancelled Urine Bilirubin NEGATIVE Cancelled Urine Urobilinogen NORMAL Urobilinogen Dipstick Cancelled Urine Leukocytes Cancelled Urine WBC (Auto) Cancelled Urine RBC (Auto) Cancelled U Epithel Cells (Auto) Cancelled Urine Bacteria (Auto) Cancelled Urine Microscopic RBC Not Reportable Urine WBC TRACE A Urine Microscopic WBC <10 Ur Epithelial Cells >10 A Urine Bacteria 2+ Urine Glucose NEGATIVE 04/28/16 04/28/16 04/28/16 09:45 09:45 09:45 WBC 13.64 H RBC 4.49 Hgb 13.1 Hct 40.7 MCV 90.6 MCH 29.2 MCHC 32.2 L RDW Std Deviation 13.9 Plt Count 410 H MPV 9.2 Immature Gran % (Auto) 0.2 Neut % (Auto) 73.0 Lymph % (Auto) 19.4 L Hunt % (Auto) 6.0 Eos % (Auto) 1.0 Baso % (Auto) 0.4 Immature Gran # (Auto) 0.03 Neut # (Auto) 9.96 H Lymph # (Auto) 2.65 Hunt # (Auto) 0.82 H Eos # (Auto) 0.13 Baso # (Auto) 0.05 PT INR APTT (Factor Assay) D-Dimer Sodium Potassium Chloride Carbon Dioxide Anion Gap BUN Creatinine Estimated GFR/1.73 m2 BUN/Creatinine Ratio Glucose Calculated Osmolality Calcium Magnesium Total Bilirubin AST ALT Alkaline Phosphatase Creatine Kinase Troponin T < 0.010 [id number]-M-Xzunguguvbx Pept 268 Total Protein Albumin Globulin Albumin/Globulin Ratio Urine Source Urine Color Urine Clarity Urine Turbidity Urine pH Ur Specific [place] Urine Protein Ur Glucose (Stick) Urine Ketones Ur Ketones (Stick) Urine Blood Urine Nitrite Urine Bilirubin Urine Urobilinogen Urobilinogen Dipstick Urine Leukocytes Urine WBC (Auto) Urine RBC (Auto) U Epithel Cells (Auto) Urine Bacteria (Auto) Urine Microscopic RBC Urine WBC Urine Microscopic WBC Ur Epithelial Cells Urine Bacteria Urine Glucose 04/28/16 09:45 WBC RBC Hgb Hct MCV MCH MCHC RDW Std Deviation Plt Count MPV Immature Gran % (Auto) Neut % (Auto) Lymph % (Auto) Hunt % (Auto) Eos % (Auto) Baso % (Auto) Immature Gran # (Auto) Neut # (Auto) Lymph # (Auto) Hunt # (Auto) Eos # (Auto) Baso # (Auto) PT INR APTT (Factor Assay) D-Dimer Sodium 138 Potassium 3.6 Chloride 95 L Carbon Dioxide 32 Anion Gap 11 BUN 13 Creatinine 0.7 Estimated GFR/1.73 m2 > 60 BUN/Creatinine Ratio 19 Glucose 167 H Calculated Osmolality 280 Calcium 9.5 Magnesium 2.2 Total Bilirubin 0.30 AST 7 L ALT < 5 L Alkaline Phosphatase 116 H Creatine Kinase 39 Troponin T Yrt-[id number]-Mmtpdyaohau Pept Total Protein 7.5 Albumin 3.8 Globulin 4.0 Albumin/Globulin Ratio 1.0 Urine Source Urine Color Urine Clarity Urine Turbidity Urine pH Ur Specific [place] Urine Protein Ur Glucose (Stick) Urine Ketones Ur Ketones (Stick) Urine Blood Urine Nitrite Urine Bilirubin Urine Urobilinogen Urobilinogen Dipstick Urine Leukocytes Urine WBC (Auto) Urine RBC (Auto) U Epithel Cells (Auto) Urine Bacteria (Auto) Urine Microscopic RBC Urine WBC Urine Microscopic WBC Ur Epithelial Cells Urine Bacteria Urine Glucose (Edgar Velazquez) Departure <Danitza Castaneda - Last Filed: 04/28/16 11:47> - Departure Time of Disposition Order: 11:41 Certified Medical Emergency: Emergent <Edgar Velazquez - Last Filed: 04/28/16 22:56> - Departure DIAGNOSIS: Generalized weakness, UTI (urinary tract infection), bacterial Left shoulder pain Qualifiers: Chronicity: acute Qualified Code(s): M25.512 - Pain in left shoulder Disposition: HOME 01 Condition: Stable Additional Instructions: ED Follow Up Instructions: You have been treated by a care provider in the Emergency Department. These instructions are being provided to you so you can have an understanding of how to care for yourself upon discharge. Upon discharge from the Emergency Department, you are responsible for making arrangements for follow-up care by a physician of your choice. Take all prescribed medications as directed. Return to the Emergency Department immediately for any new or worsening symptoms. You may call the Physician Referral phone number at [phone] to obtain a list of Physicians who are taking new patients. Prescriptions: Nitrofurantoin [place]/Macrocryst [Macrobid] 100 mg PO BID #10 capsule Ketorolac [Toradol] 10 mg PO Q6H PRN PRN #6 tablet PRN Reason: Pain Referrals: Gilbert Mc MD [Primary Care Provider] - Instructions: Shoulder Pain, Ketorolac tablets, Weakness Attestation - Scribe Verification/Attestation Scribe:: Danitza Castaneda Acting as Scribe for:: Edgar Velazquez Scribe documention review:: This chart was documented by a scribe and accurately reflects the service the provider performed and the decisions made by the provider. - Physician/ JESSICA Attestation Patient care was provided by Advanced Practice Provider:: Yes Advanced Practice Provider:: Edgar Velazquez Advanced Practice Provider documentation review:: The Mid-level provider documentation, treatment plan and medical decision making was reviewed by the physician who agrees with all treatment and medical decision making by the MLP. <Danitza Castaneda - Last Filed: 04/28/16 11:47> - Physician/ JESSICA Attestation Patient care was provided by Advanced Practice Provider:: Yes Advanced Practice Provider:: Edgar Velazquez Advanced Practice Provider documentation review:: The Mid-level provider documentation, treatment plan and medical decision making was reviewed by the physician who agrees with all treatment and medical decision making by the MLP. <Edgar Velazquez - Last Filed: 04/28/16 22:56> Physician Attestation
--- NOTE | 2016-04-28 10:22 | Diag Imaging Result Document ---
PROCEDURE NAME: CHEST-2 VIEWS - 04/28/2016 CHEST X-RAY, 2 VIEWS: COMPARISON: 04/12/2016. FINDINGS: The lungs are normally expanded and clear. Heart size and mediastinal contours are normal. No pneumothorax or pleural effusion. IMPRESSION: Negative exam.
--- NOTE | 2016-04-28 10:36 | EKG Report ---
Test Performed on : 04/28/2016 09:36:28 AM Test Reason : CHEST PAIN Blood Pressure : / mmHG Vent. Rate : 073 BPM Atrial Rate : 073 BPM P-R Int : 146 ms QRS Dur : 074 ms QT Int : 416 ms P-R-T Axes : 060 028 062 degrees QTc Int : 458 ms Normal sinus rhythm. Normal ECG When compared with ECG of 31-MAR-2016 21:26, No significant change was found Unconfirmed Result
[2016-04-28] MEDS ORDERED: TORADOL IV ONE (11:43)
[2016-04-28 11:45] LABS: URINE SOURCE CATH
[2016-04-28 11:52] LABS: BILIRUBIN URINE NEGATIVE (NEGATIVE); BLOOD URINE NEGATIVE (NEGATIVE); CLARITY CLEAR (CLEAR); COLOR YELLOW; GLUCOSE URINE NEGATIVE (NEGATIVE); LEUKOCYTES URINE TRACE (NEGATIVE); NITRITE URINE NEGATIVE (NEGATIVE); PROTEIN URINE 1+(30 mg/dL) mg/dL (NEGATIVE); UROBILINOGEN URINE NORMAL
[2016-04-28 11:54] LABS: URINE WBC <10 /HPF (<10)
[2016-04-28 11:55] LABS: URINE CULTURE PL NEEDED? YES; URINE EPITHELIAL CELLS >10 /HPF (<10)
[2016-04-28 12:47] VITALS: BP 165/79
== END 2016-04-28 12:47 | disposition home or self-care (01) ==
LOC: P.ED 09:31
DX: N39.0 Urinary tract infection, site not specified (principal); B96.89 Other specified bacterial agents as the cause of diseases classified elsewhere; M62.81 Muscle weakness (generalized); M25.512 Pain in left shoulder; R07.9 Chest pain, unspecified; M79.602 Pain in left arm; I10 Essential (primary) hypertension; J44.9 Chronic obstructive pulmonary disease, unspecified; Z79.899 Other long term (current) drug therapy; E07.9 Disorder of thyroid, unspecified; Z87.442 Personal history of urinary calculi; F31.9 Bipolar disorder, unspecified; Z79.1 Long term (current) use of non-steroidal anti-inflammatories (NSAID)
CPT/HCPCS: 71020; 80053; 81001; 82550; 83735; 83880; 84484; 85025; 85379; 85610; 85730; 87088; 93005; 96374; J1885

== ENCOUNTER 2016-05-13 05:20 | Emergency (ER) | payer OTHER ==
--- NOTE | 2016-05-13 05:33 | PROVIDER DOCUMENTATION ---
HPI-Respiratory General <Gregorio Woo - Last Filed: 05/13/16 05:32> <Gilbert Mc - Last Filed: 05/13/16 14:26> - General Source: patient - History of Present Illness-Resp Quality of Pain: reports: aching Severity in ED: reports: mild Onset/Duration: reports: this morning Timing: reports: still present Exposure: reports: unknown cause Cough Quality/Degree: reports: no cough Current Respiratory Medication Therapy: Initiated see nurses note Modifying Factors: improves with: nothing Associated Symptoms: reports: shortness of breath. denies: chest pain/soreness , cough, dizziness, earache, facial pain, fever/chills, flu-like symptoms, headache, heart racing, hurts to breathe, hyperventilating, lightheadedness, muscle/bodyaches, nasal congestion, nasal drainage, sinus pain, short of breath , sore throat, sweaty, wheezing Similar Symptoms Previously?: Yes Recently seen or treated by another doctor?: No <Nancy Valentine - Last Filed: 05/13/16 14:35> - General Chief Complaint: Shortness of Breath Time Seen by Provider: 05/13/16 05:30 Allergies/Adverse Reactions: Patient Allergies Allergy/AdvReac Type Severity Reaction Status Date / Time adhesive Allergy Severe Unknown Verified 03/31/16 21:15 methylprednisolone sodium Allergy Severe SHORTNESS Verified 03/31/16 21:15 succ... * OF BREATH [From [facility]] Home Medications: Home Medication List Medication Instructions Recorded Confirmed Last Taken Type Alprazolam [Xanax] 0.5 mg PO 4XDAY 06/21/15 03/31/16 11/25/15 22:00 History Aripiprazole [Abilify] 5 mg PO QHS 06/21/15 03/31/16 11/25/15 22:00 History Carbidopa/Levodopa 1 tab PO TID 06/21/15 04/01/16 11/25/15 22:00 History [Carbidopa-Levodopa 25-100 Tab] Duloxetine [Cymbalta] 60 mg PO DAILY 06/21/15 03/31/16 11/25/15 06:30 History Estradiol 2 mg PO DAILY 06/21/15 03/31/16 11/25/15 06:30 History Levothyroxine [Synthroid] 75 mcg PO DAILY 06/21/15 03/31/16 11/25/15 06:30 History Primidone 50 mg PO BID 06/21/15 03/31/16 11/23/15 06:30 History Propranolol HCl [Propranolol HCl 120 mg PO DAILY 06/21/15 03/31/16 11/25/15 06: 30 History ER] ROSUVAstatin [Crestor] 10 mg PO DAILY 06/21/15 03/31/16 11/25/15 22:00 History Zolpidem [Ambien] 10 mg PO QHS 06/21/15 03/31/16 11/25/15 22:00 History Esomeprazole [Nexium] 40 mg PO DAILY 10/31/15 03/31/16 Unknown History Hydrocodone/Acetaminophen [Wellman 1 each PO Q4H PRN PRN 11/25/15 03/31/16 09:00 History 10-325 Tablet] LISINOpril [Prinivil] 20 mg PO DAILY 11/25/15 03/31/16 11/25/15 06:30 History Meloxicam 15 mg PO DAILY 11/25/15 03/31/16 11/23/15 06:00 History Mirtazapine [Remeron] 15 mg PO HS 11/25/15 03/31/16 11/25/15 22:00 History Trazodone [Desyrel] 200 mg PO QHS 11/25/15 03/31/16 11/25/15 22:00 History Furosemide [Lasix] 40 mg PO PRN PRN #30 tablet 02/28/16 03/31/16 03/30/16 Rx Propranolol HCl 60 mg PO QHS 04/01/16 04/01/16 Unknown History Ketorolac [Toradol] 10 mg PO Q6H PRN PRN #6 tablet 04/28/16 Unknown Rx Nitrofurantoin Falls/Macrocryst 100 mg PO BID #10 capsule 04/28/16 Unknown Rx [Macrobid] - History of Present Illness-Resp Nature of Presenting Problem: Pt is 70 y/o F presents to the ED via EMS with SOB. Pt states woke up SOB with chest pressure. Pt states recently have a depo shot and it made her hold water. Pt states high blood pressure. Pt denies F (Nancy Valentine) Review of Systems - Adult - REVIEW OF SYSTEMS - ADULT Constitutional: denies: chills, fever Eyes: denies: blurred vision, double vision Ears, Nose, Mouth & Throat: denies: ear pain, nose pain, throat pain Cardiovascular: denies: chest pain, heart murmur, irregular heart rate Respiratory: reports: shortness of breath. denies: cough, wheezing Gastrointestinal: denies: abdominal pain, diarrhea, nausea, vomiting Genitourinary: denies: dysuria, hematuria Musculoskeletal: denies: bone pain, joint pain, neck pain Integumentary: denies: hives, itching Neurological: denies: dizziness/vertigo, headache/migraines Psychiatric: reports: no symptoms reported Endocrine: reports: no symptoms reported Hematologic/Lymphatic: reports: no symptoms reported Allergic/Immunologic: reports: no symptoms reported All Other Systems: Reviewed and Negative <Nancy Valentine - Last Filed: 05/13/16 14:35> Past History - Adult - PAST MEDICAL HISTORY-ADULT Major Childhood Illnesses: reports: denies history Cardiovascular: reports: HTN Respiratory: reports: COPD Genitourinary: reports: kidney stones Psychiatric: reports: bipolar Endocrine/Immune: reports: thyroid disorder - PRIOR SURGERIES/PROCEDURES Surgical/Procedure History: reports: hysterectomy, other (thyroidectomy) - PRIOR HOSPITALIZATIONS Prior Hospitalizations: reports: none - IMMUNIZATION STATUS Childhood Immunizations: See Nurse Assessment Flu Vaccine: See Nurse Assessment - FAMILY HISTORY Family History: reviewed, not pertinent <Gregorio Woo - Last Filed: 05/13/16 05:32> - PAST MEDICAL HISTORY-ADULT Review of Records: reports: Nursing Assessment Review, Medications Reviewed, Social history reviewed & non-contributory. Major Childhood Illnesses: reports: denies history Cardiovascular: reports: denies history Respiratory: reports: denies history Gastrointestinal: reports: denies history Obstetrical/Gynecological: reports: denies history Genitourinary: reports: denies history Musculoskeletal: reports: denies history Neurological: reports: denies history Endocrine/Immune: reports: denies history Other Conditions: reports: denies history - PRIOR SURGERIES/PROCEDURES Surgical/Procedure History: reports: reviewed, not pertinent - IMMUNIZATION STATUS Childhood Immunizations: See Nurse Assessment Flu Vaccine: See Nurse Assessment - FAMILY HISTORY Family History: reviewed, not pertinent - SOCIAL HISTORY Smoking: denies Substance Use: denies Living Situation: family <Nancy Valentine - Last Filed: 05/13/16 14:35> Physical Exam-General - PHYSICAL EXAM-ADULT Initial Vital Signs Reviewed: Yes - CONSTITUTIONAL General Appearance: appears well, alert, mild distress - EYES Eyes: PERRL/EOMI, pink conjunctivae, fundi clear, no AV nicking - HEAD, EARS, NOSE, MOUTH & THROAT HENMT: normocephalic/atraumatic, moist mucous membranes, normal ENT inspection, TMs normal, pharynx normal - NECK Neck: non-tender, full range of motion, supple, normal inspection - RESPIRATORY Respiratory: chest non-tender, lungs clear, normal breath sounds, no pleuratic chest pain, no respiratory distress, no accessory muscle use - CARDIOVASCULAR Cardiovascular: normal peripheral pulses, regular rate, rhythm, no edema, no gallop, no JVD, no murmur - GASTROINTESTINAL (ABDOMEN) Abdominal Exam: normal bowel sounds, non tender, soft, no organomegaly, no pulsatile mass - LYMPHATIC Lymphatic: no adenopathy - MUSCULOSKELETAL Back Exam: normal inspection, no CVA tenderness, no vertebral tenderness Extremity: normal range of motion, non-tender, normal gait, normal inspection, no pedal edema, no calf tenderness, normal capillary refill - SKIN Integumentary: normal color, normal turgor, warm/dry - NEUROLOGIC Neurologic: grossly normal - PSYCHIATRIC Psych/Mental Status: normal mood/affect, oriented x 3 <Nancy Valentine - Last Filed: 05/13/16 14:35> Progress <Gregorio Woo - Last Filed: 05/13/16 05:32> <Gilbert Mc - Last Filed: 05/13/16 14:26> - XRAY 1 XRAY: Bilateral XRAY Study: Chest Impression: Abnormal (improved interstitial infiltrates, posssibly just crowding ) <Nancy Valentine - Last Filed: 05/13/16 14:35> - PLAN OF CARE/RESULTS Progress/Plan/Lab Results: Laboratory Tests 05/13/16 05/13/16 05/13/16 05:35 05:44 05:44 WBC RBC Hgb Hct MCV MCH MCHC RDW Std Deviation Plt Count MPV Immature Gran % (Auto) Neut % (Auto) Lymph % (Auto) Falls % (Auto) Eos % (Auto) Baso % (Auto) Immature Gran # (Auto) Neut # (Auto) Lymph # (Auto) Falls # (Auto) Eos # (Auto) Baso # (Auto) PT INR APTT (Factor Assay) Sodium 142 Potassium 3.0 L Chloride 101 Carbon Dioxide 29 Anion Gap 12 BUN 14 Creatinine 0.7 Estimated GFR/1.73 m2 > 60 BUN/Creatinine Ratio 20 Glucose 161 H Calculated Osmolality 287 Calcium 8.2 L Magnesium 2.1 Total Bilirubin 0.30 AST 7 L ALT < 5 L Alkaline Phosphatase 92 Creatine Kinase 78 Troponin T < 0.010 [id number] Pept Total Protein 6.4 Albumin 3.5 Globulin 3.0 Albumin/Globulin Ratio 1.0 Urine Source CATH Urine Color YELLOW Urine Clarity CLEAR Urine pH 6.5 Ur Specific [place] 1.010 Urine Protein NEGATIVE Urine Ketones NEGATIVE Urine Blood NEGATIVE Urine Nitrite NEGATIVE Urine Bilirubin NEGATIVE Urine Urobilinogen NORMAL Urine Microscopic RBC Not Reportable Urine WBC NEGATIVE Ur Epithelial Cells <10 Urine Glucose NEGATIVE 05/13/16 05/13/16 05/13/16 05:44 05:44 05:44 WBC 17.00 H RBC 3.99 L Hgb 11.2 L Hct 35.7 L MCV 89.5 MCH 28.1 MCHC 31.4 L RDW Std Deviation 15.0 H Plt Count 381 MPV 8.5 Immature Gran % (Auto) 0.6 H Neut % (Auto) 70.2 Lymph % (Auto) 23.2 Falls % (Auto) 5.3 Eos % (Auto) 0.4 Baso % (Auto) 0.3 Immature Gran # (Auto) 0.10 H Neut # (Auto) 11.93 H Lymph # (Auto) 3.95 H Falls # (Auto) 0.90 H Eos # (Auto) 0.07 Baso # (Auto) 0.05 PT 13.0 INR 0.95 APTT (Factor Assay) 32.6 Sodium Potassium Chloride Carbon Dioxide Anion Gap BUN Creatinine Estimated GFR/1.73 m2 BUN/Creatinine Ratio Glucose Calculated Osmolality Calcium Magnesium Total Bilirubin AST ALT Alkaline Phosphatase Creatine Kinase Troponin T [id number] Pept 1351 H Total Protein Albumin Globulin Albumin/Globulin Ratio Urine Source Urine Color Urine Clarity Urine pH Ur Specific [place] Urine Protein Urine Ketones Urine Blood Urine Nitrite Urine Bilirubin Urine Urobilinogen Urine Microscopic RBC Urine WBC Ur Epithelial Cells Urine Glucose 05/13/16 05/13/16 08:44 08:44 WBC RBC Hgb Hct MCV MCH MCHC RDW Std Deviation Plt Count MPV Immature Gran % (Auto) Neut % (Auto) Lymph % (Auto) Falls % (Auto) Eos % (Auto) Baso % (Auto) Immature Gran # (Auto) Neut # (Auto) Lymph # (Auto) Falls # (Auto) Eos # (Auto) Baso # (Auto) PT INR APTT (Factor Assay) Sodium Potassium Chloride Carbon Dioxide Anion Gap BUN Creatinine Estimated GFR/1.73 m2 BUN/Creatinine Ratio Glucose Calculated Osmolality Calcium Magnesium Total Bilirubin AST ALT Alkaline Phosphatase Creatine Kinase 68 Troponin T < 0.010 [id number] Pept Total Protein Albumin Globulin Albumin/Globulin Ratio Urine Source Urine Color Urine Clarity Urine pH Ur Specific [place] Urine Protein Urine Ketones Urine Blood Urine Nitrite Urine Bilirubin Urine Urobilinogen Urine Microscopic RBC Urine WBC Ur Epithelial Cells Urine Glucose Orders Category Date Time Status Cardiac Monitoring DIRECTED Care 05/13/16 05:30 Active Farmer Cath Insertion ORDERED Care 05/13/16 05:34 Active Oxygen Therapy- ED Nursing DIRECTED Care 05/13/16 05:30 Active Saline Loc NOW Care 05/13/16 05:30 Active CHEST-2 VIEWS [RAD] Stat Exams 05/13/16 05:30 Completed CHEST-2 VIEWS [RAD] Stat Exams 05/13/16 13:33 Taken CBC WITH ELECTRONIC DIFF [HEME] Stat Lab 05/13/16 05:44 Completed CK PROFILE [SP CHEM] Stat Lab 05/13/16 05:44 Completed CK PROFILE [SP CHEM] Stat Lab 05/13/16 08:44 Completed COMPREHENSIVE METABOLIC PANEL [CHEM] Stat Lab 05/13/16 05:44 Completed MAGNESIUM [CHEM] Stat Lab 05/13/16 05:44 Completed PRO B-NATRIURETIC PEPTIDE Stat Lab 05/13/16 05:44 Com[address]IME WITH INR PL [COAG] Stat Lab 05/13/16 05:[address] [COAG] Stat Lab 05/13/16 05:44 Completed TROPONIN T Stat Lab 05/13/16 05:44 Completed TROPONIN T Stat Lab 05/13/16 08:[address] W/POSS RFLX CULT [URINALYSIS] Stat Lab 05/13/16 05:35 Completed Acetaminophen [Tylenol] Med 05/13/16 10:49 Discontinued 650 mg PO NOW ONE Albuterol 2.5MG/Ipratrop 0.5MG [Duoneb (A & A)] Med 05/13/16 06:39 Discontinued 3 ml INH NOW ONE Furosemide [Lasix] Med 05/13/16 06:39 Discontinued 80 mg IV NOW ONE Hydrocodone/APAP 10 mg/325 mg [Wellman-10] Med 05/13/16 12:00 Discontinued 1 each PO NOW ONE Potassium Chloride E.r. [Klor-Con] Med 05/13/16 12:00 Discontinued 20 meq PO NOW ONE Aerosol Treatments Stat Oth 05/13/16 06:39 Completed EKG [EKG] Stat Ther 05/13/16 05:30 Draft EKG [EKG] Stat Ther 05/13/16 08:36 Draft Vital Signs - 24 hr 05/13/16 05/13/16 05/13/16 05:21 06:51 07:00 Temperature 97.6 F Pulse Rate 77 74 73 Respiratory 18 24 17 Rate Blood Pressure 175/080 160/87 O2 Sat by Pulse 99 99 99 Oximetry 05/13/16 05/13/16 05/13/16 07:40 08:47 10:05 Temperature Pulse Rate 73 78 82 Respiratory 24 26 H 20 Rate Blood Pressure 162/95 141/83 133/81 O2 Sat by Pulse 96 96 98 Oximetry 05/13/16 05/13/16 05/13/16 10:58 11:07 12:09 Temperature Pulse Rate 85 82 83 Respiratory 15 18 14 Rate Blood Pressure 143/72 149/095 185/089 O2 Sat by Pulse 94 L 94 L 99 Oximetry (Nancy Valentine) Departure <Gregorio Woo - Last Filed: 05/13/16 05:32> - Departure Time of Disposition Order: 14:27 Certified Medical Emergency: Emergent <Gilbert Mc - Last Filed: 05/13/16 14:26> - Departure Time of Disposition Order: 14:31 Certified Medical Emergency: Emergent <Nancy Valentine - Last Filed: 05/13/16 14:35> - Departure DIAGNOSIS: CHF exacerbation Qualifiers: Congestive heart failure type: systolic Qualified Code(s): I50.23 - Acute on chronic systolic (congestive) heart failure Disposition: HOME 01 Condition: Stable Referrals: Gilbert Mc MD [Primary Care Provider] - Attestation - Scribe Verification/Attestation Scribe:: Nancy Valentine Acting as Scribe for:: Gilbert Mc Scribe documention review:: This chart was documented by a scribe and accurately reflects the service the provider performed and the decisions made by the provider. <Nancy Valentine - Last Filed: 05/13/16 14:35> Physician Attestation
[2016-05-13 05:50] LABS: MANUAL DIFF NEEDED? NO
[2016-05-13 05:52] LABS: URINE CULTURE PL NEEDED? NO; URINE SOURCE CATH
[2016-05-13 05:56] LABS: BASO% 0.3 % (0.0-0.8); EOS# 0.07 X1000 (0.0-0.7); EOS% 0.4 % (0.0-10.0); HEMATOCRIT 35.7 % (37.0-47.0); HEMOGLOBIN 11.2 g/dL (12.0-16.0); IMM GRAN% 0.6 % (0.0-0.5); LYMPH# 3.95 X1000 (1.2-3.4); LYMPH% 23.2 % (20.5-51.1); MCH 28.1 PG (27-31); MCHC 31.4 g/dL (33-37); MCV 89.5 FL (81-99); MONO% 5.3 % (1.7-9.3); MPV 8.5 FL (7.4-10.4); NEUT% 70.2 % (42.2-75.2); PLT 381 X1000 (130-400); RBC 3.99 XMIL (4.2-5.4)
--- NOTE | 2016-05-13 05:58 | EKG Report ---
Test Performed on : 05/13/2016 05:22:29 AM Test Reason : CHEST PAIN Blood Pressure : / mmHG Vent. Rate : 076 BPM Atrial Rate : 076 BPM P-R Int : 138 ms QRS Dur : 072 ms QT Int : 416 ms P-R-T Axes : 051 003 097 degrees QTc Int : 468 ms Normal sinus rhythm. Minimal voltage criteria for LVH, may be normal variant Nonspecific T wave abnormality Abnormal ECG When compared with ECG of 28-APR-2016 09:36, Inverted T waves have replaced nonspecific T wave abnormality in Lateral leads Unconfirmed Result
[2016-05-13 06:15] LABS: INR 0.95 (0.86-1.15)
[2016-05-13 06:16] LABS: PTT PL 32.6 Seconds (22.6-43.9)
[2016-05-13] MEDS ORDERED: LASIX IV ONE (06:39)
[2016-05-13] MEDS ORDERED: DUONEB (A & A) INH ONE (06:39)
[2016-05-13 06:40] LABS: AGAP 12; ALBUMIN 3.5 g/dL (3.5-5.0); ALKALINE PHOSPHATASE 92 U/L (32-104); BUN 14 mg/dL (8-22); CALCIUM 8.2 mg/dL (8.8-10.2); CHLORIDE 101 mmol/L (98-107); CK PROFILE 78 U/L (24-173); COSMO 287; GOT 7 U/L (10-30); GPT < 5 U/L (10-36); MAGNESIUM 2.1 mg/dL (1.5-2.7); SODIUM 142 mmol/L (136-145); TCO2 29 mmol/L (25-35); TOTAL PROTEIN 6.4 g/dL (6.3-8.3)
[2016-05-13 06:42] LABS: BILIRUBIN URINE NEGATIVE (NEGATIVE); BLOOD URINE NEGATIVE (NEGATIVE); CLARITY CLEAR (CLEAR); COLOR YELLOW; GLUCOSE URINE NEGATIVE (NEGATIVE); LEUKOCYTES URINE NEGATIVE (NEGATIVE); NITRITE URINE NEGATIVE (NEGATIVE); PH URINE 6.5; PROTEIN URINE NEGATIVE (NEGATIVE); UROBILINOGEN URINE NORMAL
[2016-05-13 06:47] LABS: URINE EPITHELIAL CELLS <10 /HPF (<10)
--- NOTE | 2016-05-13 07:39 | Diag Imaging Result Document ---
PROCEDURE NAME: CHEST-2 VIEWS - 05/13/2016 FRONTAL AND LATERAL CHEST, TWO VIEWS: COMPARISON: 04/28/2016. FINDINGS: The lungs are well expanded. The heart is not enlarged. Mild increased interstitial markings believed to be pulmonary edema. No consolidation. No pleural effusions. IMPRESSION: Increased interstitial markings believed to be pulmonary edema.
--- NOTE | 2016-05-13 09:08 | ED EKG INTERP ---
EKG Interpretation - EKG Time of EKG reading by physician:: 05:22 EKG Read and Signed by:: Gilbert Mc EKG Interpretation (*Must complete 3 of following elements*): Abnormal ( nonspecific T wave abnormality.) Rate: 76 Rhythm: normal sinus rhythm Comments: minimal voltage criteria for LVH, may be normal variant; Attestation - Scribe Verification/Attestation Scribe:: Nancy Valentine Acting as Scribe for:: Gilbert Mc Scribe documention review:: This chart was documented by a scribe and accurately reflects the service the provider performed and the decisions made by the provider.
--- NOTE | 2016-05-13 09:59 | EKG Report ---
Test Performed on : 05/13/2016 08:48:54 AM Test Reason : EKG #2 Blood Pressure : / mmHG Vent. Rate : 075 BPM Atrial Rate : 075 BPM P-R Int : 136 ms QRS Dur : 072 ms QT Int : 428 ms P-R-T Axes : 048 000 110 degrees QTc Int : 477 ms Normal sinus rhythm. Moderate voltage criteria for LVH, may be normal variant Nonspecific T wave abnormality Prolonged QT Abnormal ECG When compared with ECG of 13-MAY-2016 05:22, (Unconfirmed) No significant change was found Unconfirmed Result
[2016-05-13] MEDS ORDERED: TYLENOL PO ONE (10:49)
[2016-05-13] MEDS ORDERED: NORCO-10 PO ONE (12:00)
[2016-05-13] MEDS ORDERED: KLOR-CON PO ONE (12:00)
[2016-05-13 14:37] VITALS: BP 187/094
--- NOTE | 2016-05-13 15:35 | Diag Imaging Result Document ---
PROCEDURE NAME: CHEST-2 VIEWS - 05/13/2016 CHEST, 2 VIEWS AT 1343 HOURS: COMPARISON: 0615 hours. FINDINGS: There is improvement in the mild increased markings throughout the lungs. The lung volumes are low with some central crowding. IMPRESSION: Improvement from prior. The increased lung markings may simply represent bronchovascular crowding.
== END 2016-05-13 14:58 | disposition home or self-care (01) ==
LOC: P.ED 05:20
DX: I50.23 Acute on chronic systolic (congestive) heart failure (principal); R06.02 Shortness of breath; I10 Essential (primary) hypertension; J44.9 Chronic obstructive pulmonary disease, unspecified; E07.9 Disorder of thyroid, unspecified; Z87.442 Personal history of urinary calculi; F31.9 Bipolar disorder, unspecified; R94.31 Abnormal electrocardiogram [ECG] [EKG]; Z79.899 Other long term (current) drug therapy; Z79.1 Long term (current) use of non-steroidal anti-inflammatories (NSAID)
CPT/HCPCS: 36415; 51702; 71020; 80053; 81001; 82550; 83735; 83880; 84484; 85025; 85610; 85730; 93005; 94640; 96374; J1940